=== PATIENT | female | born 1985 | race American Indian/Alaskan Native ===

== ENCOUNTER 2017-12-17 14:03 | Emergency (ER) | payer MEDICAID ==
[2017-12-17 14:14] VITALS: BP 144/86
[2017-12-17] MEDS ORDERED: FLEXERIL PO ONE (19:44)
[2017-12-17] MEDS ORDERED: TORADOL IV ONE (19:45)
[2017-12-17] MEDS ORDERED: BENADRYL IV ONE (19:45)
[2017-12-17] MEDS ORDERED: REGLAN IV ONE (19:45)
--- NOTE | 2017-12-17 19:48 | Emergency Department Report ---
ED Headache HPI - General Chief Complaint: Headache Stated Complaint: HEADACHE/CHILLS/SORE NECK Time Seen by Provider: 12/17/17 19:14 - History of Present Illness Initial Comments: 32-year-old Afro-[place] female comes in for headache with left side neck pain since yesterday. Patient denies any nausea no vomiting or diarrhea. She does admit to chills, no fever, no chest pain, no shortness of breathing, no change in vision, no change in her gait. Patient reports that the pain is sharp and consistent. Patient reports that her pain is about a 7 out of 10. Patient reports that she is currently on Microgestin for control. She has no known drug allergies. Past medical history is consistent of 2 C-sections and reviewed D&Cs. Patient's last dose of ibuprofen was 12:00 600 mg which she says helps but the headache comes back. Timing/Duration: 24 hours Quality: constant, sharp Head Injury Location: frontal Recent Head Trauma: no recent headache/trauma Modifying Factors: improves with: medication (ibuprofen) Associated Symptoms: denies symptoms Allergies/Adverse Reactions: Allergies No Known Allergies Allergy (Unverified 12/17/17 14:14) Home Medications: Ambulatory Orders Cyclobenzaprine [Flexeril 10 MG TAB] 10 mg PO TID #9 tablet 12/17/17 Ibuprofen [Motrin 800 MG tab] 800 mg PO Q8HR PRN #30 tablet 12/17/17 ED Review of Systems ROS: Stated complaint: HEADACHE/CHILLS/SORE NECK Other details as noted in HPI Constitutional: chills. denies: fever Eyes: denies: eye discharge, vision change ENT: denies: ear pain, throat pain Respiratory: denies: cough, shortness of breath, wheezing Cardiovascular: denies: chest pain, palpitations Gastrointestinal: denies: abdominal pain, nausea, diarrhea Genitourinary: denies: urgency, dysuria, discharge Musculoskeletal: arthralgia (neck pain on the left side) Skin: denies: rash, lesions Neurological: headache Psychiatric: denies: anxiety, depression ED Past Medical Hx - Past Medical History Previous Medical History?: No - Surgical History Additional Surgical History: - Social History Smoking Status: Never Smoker Substance Use Type: None - Medications Home Medications: Home Medications Medication Instructions Recorded Confirmed Last Taken Type Cyclobenzaprine [Flexeril 10 MG 10 mg PO TID #9 tablet 12/17/17 Unknown Rx TAB] Ibuprofen [Motrin 800 MG tab] 800 mg PO Q8HR PRN #30 tablet 12/17/17 Unknown Rx ED Physical Exam - General Limitations: No Limitations General appearance: alert, in no apparent distress - Head Head exam: Present: atraumatic, normocephalic - Eye Eye exam: Present: normal appearance - ENT ENT exam: Present: mucous membranes moist - Neck Neck exam: Present: tenderness (left sided tenderness), full ROM. Absent: lymphadenopathy - Cardiovascular Cardiovascular Exam: Present: regular rate, normal rhythm. Absent: systolic murmur, diastolic murmur, rubs, gallop - Expanded Neurological Exam Expanded Speech: Present: fluid speech Cranial nerves: EOM's Intact: Normal, Gag Reflex: Normal, Tongue Deviation: Normal, Nystagmus: Normal, Facial Sensation: Normal, Facial Palsy with Forehead Movement: Normal, Facial Palsy without Forehead Movement: Normal Cerebellar function: Finger to Nose: Normal, Heel to Garcia: Normal, Romberg: Normal Upper motor neuron: Juan Carlos Neglect: Normal Sensory exam: Upper Extremity Light Touch: Normal, Upper Extremity Pin Prick: Normal, Upper Extremity Temperature: Normal, UE 2 Point Discrimination: Normal, Lower Extremity Light Touch: Normal, Lower Extremity Pin Prick: Normal Motor strength exam: RUE: 5, LUE: 5, RLE: 5, LLE: 5 Best Eye Response (Grayson): (4) open spontaneously Best Motor Response (Grayson): (6) obeys commands Best Verbal Response (Grayson): (5) oriented Prospect Total: 15 - Psychiatric Psychiatric exam: Present: normal affect, normal mood - Skin Skin exam: Present: warm, dry, intact, normal color. Absent: rash ED Course Vital Signs 12/17/17 14:11 Temperature 98.9 F Pulse Rate 80 Respiratory 18 Rate Blood Pressure 144/86 O2 Sat by Pulse 99 Oximetry ED Medical Decision Making - Medical Decision Making Patient has been evaluated by this provider in fast track. We'll give patient a Toradol and injection Reglan and Benadryl. As well as a Flexeril. We will have patient follow up with her primary care provider which is Dr. Kat per patient report. Critical care attestation.: If time is entered above; I have spent that time in minutes in the direct care of this critically ill patient, excluding procedure time. ED Disposition Clinical Impression: Headache Qualifiers: Headache type: tension-type Headache chronicity pattern: acute headache Intractability: intractable Qualified Code(s): G44.201 - Tension-type headache, unspecified, intractable Disposition: DC-01 TO HOME OR SELFCARE Is pt being admited?: No Does the pt Need Aspirin: No Condition: Stable Instructions: Acute Headache (ED) Additional Instructions: Please take pain medication and muscle relaxant as needed for headache. If her headache persist or gets worse please follow up to primary care provider. Prescriptions: Cyclobenzaprine [Flexeril 10 MG TAB] 10 mg PO TID #9 tablet Ibuprofen [Motrin 800 MG tab] 800 mg PO Q8HR PRN #30 tablet PRN Reason: Pain , Severe (7-10) Referrals: PRIMARY CARE,MD [Primary Care Provider] - 3-5 Days Forms: Work/School Release Form(ED), Accompanied Note
== END 2017-12-17 20:30 | disposition home or self-care (01) ==
LOC: ED 14:03
DX: G44.201 Tension-type headache, unspecified, intractable (principal)
CPT/HCPCS: 96374; 96375; 99282; J1200; J1885; J2765

== ENCOUNTER 2020-03-28 10:22 | Emergency (ER) | payer BC, MEDICAID ==
[2020-03-28 10:29] VITALS: BP 120/73
--- NOTE | 2020-03-28 14:00 | XRay Report ---
CHEST 2 VIEWS INDICATION: Chest pain for 3 days. COMPARISON: None FINDINGS: Support devices: None. Heart: Within normal limits. Lungs/pleura: No acute air space or interstitial disease. No pneumothorax. Additional findings: None. IMPRESSION: No acute findings. Signer Name: Gene Valentine Jr, MD Signed: 03/28/2020 1:55 PM Workstation Name: [id number]
--- NOTE | 2020-03-28 14:50 | Emergency Department Report ---
ED General Adult HPI - General Chief complaint: Chest Pain Stated complaint: CP Time Seen by Provider: 03/28/20 12:17 Source: patient Mode of arrival: Ambulatory Limitations: No Limitations - History of Present Illness Initial comments: 34-year-old -[place] female whom recently started a new workout regimen involving [employer] and spin classes presents emerge department complaining of an episode of chest discomfort worse with deep breaths and range of motion of her extremities on Saturday and then resolve after taking some medication. She went to [employer] [place] over the course of the weekend the pain reemerged on this morning when she awoke and feeling sharp and sore worse with deep breaths and range of motion but she reports no hemoptysis no hematemesis no hematochezia no palpitations no fever, chills, sweats no symptoms that worsen on exertion. She reports no nausea, no vomiting, no numbness or tingling to any of her extremities or her face. Normal voice. She states she was treated for something similar last year which resolved with steroids and another unknown medication and to her knowledge she has no cardiovascular history Location: chest Radiation: non-radiation Severity scale (0 -10): 4 Quality: aching Consistency: constant Improves with: medication Worsens with: movement Associated Symptoms: confusion, chest pain. denies: cough, diaphoresis, fever/chills, loss of appetite, malaise, nausea/vomiting, shortness of breath, syncope - Related Data Previous Rx's Medication Instructions Recorded Last Taken Type Cyclobenzaprine [Flexeril 10 MG 10 mg PO TID #9 tablet 12/17/17 Unknown Rx TAB] Ibuprofen [Motrin 800 MG tab] 800 mg PO Q8HR PRN #30 tablet 12/17/17 Unknown Rx Ketorolac [Toradol] 10 mg PO Q6H PRN #20 tablet 03/28/20 Unknown Rx Allergies Allergy/AdvReac Type Severity Reaction Status Date / Time No Known Allergies Allergy Unverified 12/17/17 14:14 ED Review of Systems ROS: Stated complaint: CP Other details as noted in HPI Comment: All other systems reviewed and negative ED Past Medical Hx - Past Medical History Previous Medical History?: No - Surgical History Past Surgical History?: Yes Additional Surgical History: - Social History Smoking Status: Never Smoker Substance Use Type: None - Medications Home Medications: Home Medications Medication Instructions Recorded Confirmed Last Taken Type Cyclobenzaprine [Flexeril 10 MG 10 mg PO TID #9 tablet 12/17/17 Unknown Rx TAB] Ibuprofen [Motrin 800 MG tab] 800 mg PO Q8HR PRN #30 tablet 12/17/17 Unknown Rx Ketorolac [Toradol] 10 mg PO Q6H PRN #20 tablet 03/28/20 Unknown Rx ED Physical Exam - General Limitations: No Limitations General appearance: alert, in no apparent distress - Head Head exam: Present: atraumatic, normocephalic - Eye Eye exam: Present: normal appearance, PERRL Pupils: Present: normal accommodation - ENT ENT exam: Present: normal exam, normal orophraynx, mucous membranes moist - Neck Neck exam: Present: normal inspection, full ROM - Respiratory Respiratory exam: Present: normal lung sounds bilaterally, chest wall tenderness (Tenderness along the sternal border pain worse with opposed adduction and range of motion of the chest joint.). Absent: respiratory distress, wheezes, rales, rhonchi, stridor, accessory muscle use, decreased breath sounds, prolonged expiratory - Cardiovascular Cardiovascular Exam: Present: regular rate, normal rhythm. Absent: systolic murmur, diastolic murmur, rubs, gallop - GI/Abdominal GI/Abdominal exam: Present: soft, normal bowel sounds - Extremities Exam Extremities exam: Present: normal inspection, full ROM, normal capillary refill. Absent: joint swelling, calf tenderness - Back Exam Back exam: Present: normal inspection, CVA tenderness (R), CVA tenderness (L) - Neurological Exam Neurological exam: Present: alert, oriented X3, CN II-XII intact, normal gait. Absent: motor sensory deficit - Psychiatric Psychiatric exam: Present: normal affect, normal mood. Absent: anxious, flat affect - Skin Skin exam: Present: warm, dry, intact, normal color. Absent: rash, cyanosis, diaphoretic, erythema ED Course Vital Signs 03/28/20 03/28/20 10:27 11:52 Temperature 98.7 F Pulse Rate 64 Respiratory 18 18 Rate Blood Pressure 120/73 O2 Sat by Pulse 97 100 Oximetry Critical care attestation.: If time is entered above; I have spent that time in minutes in the direct care of this critically ill patient, excluding procedure time. ED Disposition Disposition: - TO HOME OR SELFCARE Condition: Stable Instructions: Chest Pain (ED), Costochondritis (ED) Prescriptions: Ketorolac [Toradol] 10 mg PO Q6H PRN #20 tablet PRN Reason: Pain Referrals: PRIMARY CARE, [Primary Care Provider] - 3-5 Days [facility] [Provider Group] - 3-5 Days
== END 2020-03-28 15:16 | disposition home or self-care (01) ==
LOC: ED 10:22
DX: R07.89 Other chest pain (principal); Z98.890 Other specified postprocedural states; Z79.899 Other long term (current) drug therapy
CPT/HCPCS: 71046; 93005